=== PATIENT | female | born 1960 ===

== ENCOUNTER 2017-02-26 11:19 | Emergency (ER) | payer SELFPAY ==
[2017-02-26 11:24] VITALS: BP 122/66; PULSE 79; RESP 18; O2SAT 95
== END 2017-02-26 12:31 | disposition left against medical advice (07) ==
DX: Z53.21 Procedure and treatment not carried out due to patient leaving prior to being seen by health care provider (principal)

== ENCOUNTER 2017-12-18 16:23 | Emergency (ER) | payer OTHER, MEDICAID ==
[2017-12-18 16:35] VITALS: BP 123/91
== END 2017-12-18 18:00 | disposition left against medical advice (07) ==
DX: Z53.21 Procedure and treatment not carried out due to patient leaving prior to being seen by health care provider (principal)